=== PATIENT | male | born 1940 | race Caucasian/White ===

== ENCOUNTER 2024-08-26 05:54 | Day surgery (SDC) | payer MEDICARE ==
[2024-08-26] MEDS ORDERED: SODIUM CHLORIDE 0.9% 1,000 ML IV SCH ×2 (06:00→07:45)
[2024-08-26] MEDS: SODIUM CHLORIDE 0.9% 500 ML 500 ML IV ONE (06:45)
[2024-08-26] MEDS ORDERED: LIDOCAINE 1% INJ 10MG/ML (20 ML MDV) ONE (07:08)
[2024-08-26] MEDS ORDERED: PROPOFOL 10 MG/ML 20 ML VIAL IV ONE (07:08)
[2024-08-26] MEDS ORDERED: HYDROmorphone 0.5 MG/0.5 ML SYRINGE IVP PRN (07:11)
[2024-08-26 07:16] LABS: African American GFR (CKD) 65 (>60 ml/min/1.73 sqM); Anion Gap 5 mmol/L; Blood Urea Nitrogen 19 mg/dL (9-20); Calcium 9.4 mg/dL (8.4-10.2); Carbon Dioxide 30 mmol/L (22-30); Chloride 104 mmol/L (98-107); Glucose 119 mg/dL (74-99); Non-African American GFR(CKD) 56 (>60 ml/min/1.73 sqM); Potassium 4.2 mmol/L (3.5-5.1); Sodium 139 mmol/L (137-145)
[2024-08-26] MEDS: BENZOCAINE SPRAY 1 EACH MM ONE (07:16)
[2024-08-26] MEDS ORDERED: TAMSULOSIN 0.4 MG CAP.ER.24H PO PRN (07:33)
--- NOTE | 2024-08-26 07:36 | P.PCN ---
Date of Procedure: 08/26/24 Description of Procedure: Indication: Atrial fibrillation Procedure Description: After explaining the procedure to the patient, it's risk and complications, blood pressure, heart rate and O2 saturation were monitored. The throat was sprayed with Cetacaine. Patient received sedation per anesthesia department . The probe was introduced into the esophagus without difficulty. Images were obtained. Following that, the probe was removed. There was no immediate complication. Findings: Left atrial size is mildly dilated, left atrial appendage is normal. Left ventricular size and systolic function are normal. Mitral annulus calcification was noted. The aortic valve is a tricuspid valve with severe calcifications and reduced opening. Tricuspid valve and pulmonic valve appears to be normal. Descending thoracic aorta revealed mild atherosclerotic changes. No pericardial effusion was noted. Contrast bubble study revealed no shunting across the interatrial septum. Doppler: Pulse wave and color Doppler were obtained, and revealed moderate mitral with mild to moderate tricuspid regurgitation. There is mild to moderate aortic regurgitation. The peak gradient across the aortic valve was 56 mmHg with a mean of 38 mmHg. No shunting was noted by color Doppler study. Conclusion: 1. Dilated left atrium with normal appearance of the left atrial appendage 2. Normal left ventricular size and systolic function 3. Moderate severe aortic stenosis with mild to moderate aortic regurgitation 4. 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 No shunting across the interatrial septum. Cardioversion: After obtaining TOMMY and sedated state a synchronized biphasic cardioversion using 150 J was performed with hinduism of sinus mechanism, there was no immediate complications.
[2024-08-26 07:40] VITALS: TEMP 97.4
[2024-08-26 07:59] VITALS: RESP 16
[2024-08-26 08:57] VITALS: BP 120/72; PULSE 88
[2024-08-26] MEDS ORDERED: ATORVASTATIN 20 MG TAB PO SCH (21:00)
[2024-08-26] MEDS ORDERED: RIVAROXABAN 20 MG TAB PO SCH (21:00)
[2024-08-26] MEDS ORDERED: LOSARTAN 50 MG TAB PO SCH (21:00)
== END 2024-08-26 09:01 | disposition home or self-care (01) ==
LOC: OR 05:54
PROVIDERS: ATTEND Internal Medicine Interventional Cardiology
DX: I48.11 Longstanding persistent atrial fibrillation (principal); I08.2 Rheumatic disorders of both aortic and tricuspid valves; I10 Essential (primary) hypertension; E78.2 Mixed hyperlipidemia; Z88.2 Allergy status to sulfonamides; Z79.02 Long term (current) use of antithrombotics/antiplatelets; Z79.899 Other long term (current) drug therapy
CPT/HCPCS: 93312; 93320; 93325; 92960; 80048; J2003; J2704

== ENCOUNTER 2024-12-27 08:43 | Day surgery (SDC) | payer MEDICARE ==
[2024-12-22 10:57] VITALS: BMI 25.5
[2024-12-27] MEDS: IV FLUID CONTINUATION 1,000 ML IV ONE (09:14)
[2024-12-27] MEDS ORDERED: PROPOFOL 10 MG/ML 20 ML VIAL IV ONE (09:46)
[2024-12-27 10:12] VITALS: TEMP 97
[2024-12-27] MEDS ORDERED: SODIUM CHLORIDE 0.9% 1,000 ML IV SCH (10:15)
--- NOTE | 2024-12-27 10:17 | P.PCN ---
Date of Procedure: 12/27/24 Description of Procedure: Cardioversion: Indications: Atrial fibrillation Procedure: After explaining the procedure to the patient as well as the risks and the complication, his blood pressure, heart rate and O2 saturation were monitored. Sedation per anesthesia department was administered and subsequently 150 J synchronized biphasic cardioversion was performed with inability to restore sinus mechanism subsequently 200 J cardioversion was performed with spiritism of sinus mechanism, there was no immediate complications.
[2024-12-27 11:27] VITALS: BP 136/77; PULSE 72; RESP 16
[2024-12-27] MEDS ORDERED: AMIODARONE 200 MG TAB PO SCH (17:30)
[2024-12-27] MEDS ORDERED: RIVAROXABAN 20 MG TAB PO SCH (21:00)
[2024-12-27] MEDS ORDERED: ATORVASTATIN 20 MG TAB PO SCH (21:00)
[2024-12-27] MEDS ORDERED: LOSARTAN 50 MG TAB PO SCH (21:00)
== END 2024-12-27 11:34 | disposition home or self-care (01) ==
LOC: OR 08:43
PROVIDERS: ATTEND Internal Medicine Interventional Cardiology
DX: I48.11 Longstanding persistent atrial fibrillation (principal)
CPT/HCPCS: 92960